=== PATIENT | male | born 1985 | race Caucasian/White ===

== ENCOUNTER 2018-03-17 05:16 | Emergency (ER) | payer OTHER ==
[~2018-03-17] VITALS: Ht 170.2 cm; Wt 65.9 kg
[~2018-03-17 05:16] MED LIST: FAMO-128 PO; NO HOME MEDS; ONDA4TAB12 PO; ONDA4TAB6 PO
[2018-03-17] MEDS ORDERED: normal saline 1000ML IV soln IV ONE (06:00)
[2018-03-17] MEDS ORDERED: CefTRIAXone 2gm/D5W 50ml 50 ML IV ONE (06:00)
[2018-03-17] MEDS ORDERED: dexamethasone sod phosphate 10mg/ml inj IV STA (06:09)
[2018-03-17] MEDS ORDERED: ondansetron/PF 4mg/2ml inj IV ONE (06:15)
[2018-03-17] MEDS ORDERED: morphine 4 MG/ML inj SYRINge IV ONE (06:15)
[2018-03-17] MEDS ORDERED: iohexol 350MG/ML 100ml bottle IV ONE (06:57)
[2018-03-17 07:01] LABS: BASOPHILS % (AUTO) 0 % (0-1); EOSINOPHILS % (AUTO) 0.3 % (0-6); HEMATOCRIT 39.9 % (42.0-52.0); HEMOGLOBIN 13.7 g/dl (14.0-17.9); LYMPHOCYTES % (AUTO) 8.6 % (21-51); MEAN CORPUSCULAR HEMOGLOBIN 30.9 PG (27.0-31.0); MEAN CORPUSCULAR HGB CONC 34.4 % (33.0-36.5); MEAN CORPUSCULAR VOLUME 89.9 FL (78-98); MEAN PLATELET VOLUME 6.7 FL (7.4-10.4); MONOCYTES # (AUTO) 0.6 X10'3 (0-0.9); MONOCYTES % (AUTO) 5.5 % (2-12); NEUTROPHILS # (AUTO) 9.5 X10'3 (1.8-7.7); NEUTROPHILS % (AUTO) 85.6 % (42-75); PARTIAL THROMBOPLASTIN TIME 29 SECONDS (22-32); PLATELET COUNT 294 X10'3 (140-440); PROTHROMBIN TIME 10.3 SECONDS (9.0-12.0); RED BLOOD COUNT 4.44 X10'6 (4.70-6.10); RED CELL DISTRIBUTION WIDTH 13.4 % (11.5-14.5); WHITE BLOOD COUNT 11.1 X10'3 (4.5-11.0)
[2018-03-17 07:06] LABS: ALANINE AMINOTRANSFERASE 88 U/L (12-78); ALBUMIN 2.9 G/DL (3.4-5.0); ALBUMIN/GLOBULIN RATIO 0.8 (1.1-1.5); ALKALINE PHOSPHATASE 88 IU/L (46-116); ANION GAP 8 (8-16); ASPARTATE AMINO TRANSFERASE 37 U/L (10-37); BILIRUBIN,TOTAL 0.6 MG/DL (0.1-1.0); BLOOD UREA NITROGEN 9 MG/DL (7-18); BUN/CREATININE RATIO 10.6 (5.4-32.0); CALCIUM 8.3 MG/DL (8.5-10.1); CHLORIDE 101 MMOL/L (99-107); CREATININE 0.85 MG/DL (0.60-1.10); GLUCOSE 118 MG/DL (70-104); MAGNESIUM 1.4 MG/DL (1.5-2.4); POTASSIUM 4.2 MMOL/L (3.5-5.1); SODIUM 137 MMOL/L (135-145); TOTAL CARBON DIOXIDE 27.8 MMOL/L (24-32); TOTAL PROTEIN 6.7 G/DL (6.4-8.2); eGFR > 90 ML/MIN
[2018-03-17] MEDS ORDERED: vancomycin/NS 1 GM ADD-VANTAGE 250 ML IV ONE (07:10)
[2018-03-17] MEDS ORDERED: diphenhydrAMINE 50 mg/ml inj IV ONE (07:15)
[2018-03-17] MEDS ORDERED: epiNEPHrine 1 mg/ml inj SQ STA (07:30)
[2018-03-17 07:42] VITALS: BP 125/77
== END 2018-03-17 08:00 | disposition short-term general hospital (02) ==
LOC: ER 05:17
DX: J39.1 Other abscess of pharynx (principal); F12.90 Cannabis use, unspecified, uncomplicated; F15.90 Other stimulant use, unspecified, uncomplicated; F17.200 Nicotine dependence, unspecified, uncomplicated; Z79.899 Other long term (current) drug therapy; Z56.0 Unemployment, unspecified
CPT/HCPCS: 36415; 70491; 80053; 83605; 83735; 84145; 85025; 85610; 85730; 87040; 87081; 87880; 96365; 96367; 96372; 96375; 99291; J0171; J0696; J1100; J1200; J2270; J2405; J3370; J7030; Q9967

== ENCOUNTER 2019-02-19 20:06 | Emergency (ER) | payer MEDICAID ==
[~2019-02-19] VITALS: Ht 167.6 cm; Wt 64.3 kg
[~2019-02-19 20:06] MED LIST changes: +LIDOcaine 1% w/EPI 1:100,000 30ml vial (MDV) ONE
[2019-02-19] MEDS ORDERED: HYDR-3965 PO (22:02)
[2019-02-19 22:09] VITALS: BP 140/88
== END 2019-02-19 22:10 | disposition home or self-care (01) ==
LOC: ER 20:07
DX: S62.396A Other fracture of fifth metacarpal bone, right hand, initial encounter for closed fracture (principal); F12.90 Cannabis use, unspecified, uncomplicated; F15.90 Other stimulant use, unspecified, uncomplicated; Z56.0 Unemployment, unspecified; Z79.899 Other long term (current) drug therapy; W22.8XXA Striking against or struck by other objects, initial encounter; Y93.89 Activity, other specified; Y92.89 Other specified places as the place of occurrence of the external cause; Y99.8 Other external cause status
CPT/HCPCS: 26605; 73120; 73130; 99284; J3490

== ENCOUNTER 2019-03-17 13:46 | Outpatient (CLI) | payer MEDICAID ==
[~2019-03-17 13:46] MED LIST changes: -LIDOcaine 1% w/EPI 1:100,000 30ml vial (MDV) ONE
== END 2019-03-17 14:35 | disposition home or self-care (01) ==
LOC: ORTHO 13:46
PROVIDERS: ATTEND Orthopaedic Surgery
DX: S62.336D Displaced fracture of neck of fifth metacarpal bone, right hand, subsequent encounter for fracture with routine healing (principal); X58.XXXD Exposure to other specified factors, subsequent encounter
CPT/HCPCS: 73130; G0463

== ENCOUNTER 2020-02-16 16:58 | Emergency (ER) | payer MEDICAID ==
[~2020-02-16] VITALS: Ht 162.6 cm; Wt 66.4 kg
[2020-02-16 17:02] VITALS: BP 147/76
== END 2020-02-16 18:14 | disposition home or self-care (01) ==
LOC: ER 16:58
DX: M79.641 Pain in right hand (principal); F15.90 Other stimulant use, unspecified, uncomplicated; F12.90 Cannabis use, unspecified, uncomplicated; Z72.89 Other problems related to lifestyle; Z56.0 Unemployment, unspecified; Z79.899 Other long term (current) drug therapy
CPT/HCPCS: 73130; 99283

== ENCOUNTER 2020-05-27 13:52 | Emergency (ER) | payer MEDICAID ==
[~2020-05-27] VITALS: Ht 162.6 cm; Wt 65.9 kg
--- NOTE | 2020-05-27 15:03 | NUR ---
MOTHER CALLED AND SAYS PATIENT DOESNT HEAL WELL, WILL NEED ANTIBIOTICS
[2020-05-27] MEDS ORDERED: BUPIVAcaine/PF 2.5 mg/ml (0.25%) 30ml vial IJ ONE (15:15)
[2020-05-27] MEDS ORDERED: TETanus/Pertussis (Acell)/Diphther VAC/PF (Tdap-Adult) 0.5ml syringe IMVAC ONE (15:15)
[2020-05-27] MEDS ORDERED: BUPIVAcaine/PF 2.5mg/ml (0.25%) 10ml vial IJ ONE (15:20)
[2020-05-27 16:32] VITALS: BP 142/109
== END 2020-05-27 16:30 | disposition home or self-care (01) ==
LOC: ER 13:53
DX: S61.213A Laceration without foreign body of left middle finger without damage to nail, initial encounter (principal); F12.90 Cannabis use, unspecified, uncomplicated; F15.90 Other stimulant use, unspecified, uncomplicated; Z56.0 Unemployment, unspecified; Z79.899 Other long term (current) drug therapy; W45.8XXA Other foreign body or object entering through skin, initial encounter; Y93.H2 Activity, gardening and landscaping; Y92.096 Garden or yard of other non-institutional residence as the place of occurrence of the external cause; Y99.8 Other external cause status
CPT/HCPCS: 12001; 90471; 90715; 99283

== ENCOUNTER 2020-07-22 17:05 | Emergency (ER) | payer MEDICAID ==
[~2020-07-22] VITALS: Ht 165.1 cm; Wt 64.9 kg
[~2020-07-22 17:05] MED LIST changes: +LIDOcaine 1% W/epiNEPHrine 1:200,000 10ml vial ONE
[2020-07-22] MEDS ORDERED: HYDROcodone/acetaminophen 5mg/325mg tablet PO ONE (17:55)
[2020-07-22] MEDS ORDERED: amoxicillin 250mg capsule PO ONE (19:15)
[2020-07-22] MEDS ORDERED: ondansetron 4mg rapidly disintigrating tab PO ONE (19:15)
[2020-07-22] MEDS ORDERED: AMOX500C2 PO (19:30)
[2020-07-22 19:53] VITALS: BP 158/108
== END 2020-07-22 19:55 | disposition home or self-care (01) ==
LOC: ER 17:06
DX: K04.7 Periapical abscess without sinus (principal); R50.9 Fever, unspecified; F12.90 Cannabis use, unspecified, uncomplicated; F15.90 Other stimulant use, unspecified, uncomplicated; Z72.89 Other problems related to lifestyle; Z56.0 Unemployment, unspecified; Z79.2 Long term (current) use of antibiotics; Z79.899 Other long term (current) drug therapy
CPT/HCPCS: 41800; 99284

== ENCOUNTER 2021-04-13 13:39 | Emergency (ER) | payer MEDICAID ==
[~2021-04-13] VITALS: Ht 170.2 cm; Wt 70.9 kg
[~2021-04-13 13:39] MED LIST changes: -LIDOcaine 1% W/epiNEPHrine 1:200,000 10ml vial ONE
[2021-04-13 14:12] VITALS: BP 132/86
[2021-04-13] MEDS ORDERED: NEOM10DR45 LEFT EAR (14:20)
== END 2021-04-13 15:12 | disposition home or self-care (01) ==
LOC: ER 13:40
DX: H60.92 Unspecified otitis externa, left ear (principal); H60.332 Swimmer's ear, left ear
CPT/HCPCS: 99283

== ENCOUNTER 2025-04-13 21:25 | Emergency (ER) | payer MEDICAID ==
[~2025-04-13 21:25] MED LIST changes: +DIAZ-351 PO; -FAMO-128 PO; -ONDA4TAB12 PO
[2025-04-13 21:34] VITALS: BP 164/115; PULSE 100; RESP 18; TEMP 97; O2SAT 97
[2025-04-13] MEDS ORDERED: CLIN-197 PO (21:45)
--- NOTE | 2025-04-13 21:46 | Physician Documentation ---
HPI ~ General Chief Complaint: Facial Swelling Stated Complaint: TOOTH ABSCESS Time Seen by MD: 21:41 Primary Medical Doctor: NONE Source: patient Mode of Arrival: POV Exam Limitations: no limitations History of Present Illness HPI Comment 39-year-old with poor dentition does have dental but it has been awhile has experienced some cheek swelling to the left side for 3 days no fevers no difficulty swallowing or breathing. Patient started taking antibiotics that he has had left over. Medication Reconciliation Allergies: Coded Allergies: No Known Allergies (Unverified , 09/02/09) Scheduled Clindamycin HCl (Clindamycin HCl), 1 CAP PO Q8H Ondansetron Hcl (Zofran), 1 TAB PO Q8H Scheduled PRN Diazepam (Diazepam), 1 TAB PO TID PRN PRN for anxiety Miscellaneous Medications Home Med List (No Home Medications), (Reported) Past Medical History Past Medical History: No Pertinent History Past Surgical History: noncontributory Alcohol Use: Occasionally Drug Use: marijuana, methamphetamine Lives with: S/O Lives In: Home Occupation: unemployed Review of Systems All Other Systems at this time: Reviewed and Negative ENT: Reports: see HPI Physical Exam Vital Signs: Temperature: 97.0, Source: Oral, Heart Rate: 100, Respiratory Rate: 18, BP: 164/115, Pulse Oximetry: 97 Oxygen Flow Rate: 0 Physical Exam General: Alert, no apparent distress. HEENT: PERRL, EOMI, no injection, moist mucous membranes. Poor dentition multiple missing teeth and caries swelling to the left cheek no obvious fluctuance or discharge tender to tap multiple teeth to the left upper jaw. No adenopathy submandibular gland unremarkable for swelling or tenderness Neck: Full range of motion. No adenopathy Respiratory: Lungs clear, no respiratory distress. Chest: No accessory muscle use. Cardiovascular: Regular rate and rhythm, no murmurs. Extremities: Normal range of motion, no deformity. Neurologic: Oriented x4. Psychiatric: Normal mood and affect. Skin: Normal color, warm and dry. No edema, no ecchymosis. Progress Results/Orders Results/Orders Completed Orders - EMELYN COLON NP Clindamycin Capsule (Cleocin Capsule) (04/13/25 22:00) Vital Signs 04/13/25 21:34 Temp 97.0 Pulse 100 Resp 18 B/P (MAP) 164/115 Pulse Ox 97 O2 Flow Rate 0 Medical Decision Making Findings Cheek swelling not past midline differentials include Klaus's angina, dental abscess, parotidosis, had this has been going on for 3 days no difficulty breathing or swallowing or airway compromise. Antibiotics prescribed a dose tonight patient was instructed on the importance of follow up dental appointments Differential Dx:Considerations: Include: ANUG, Facial Cellulitis, Periapical abscess, Peridontal abscess, Other Departure Time of Disposition: 21:44 Disposition: HOME / SELF CARE / HOMELESS Impression: Primary Impression: Dental abscess Additional Impression: Dental caries Condition: Stable Discharge Instructions: Abscess, Dental Additional Instructions: Continue to monitor for any new or worsening symptoms including swelling or difficulty with airway. Take antibiotics as prescribed and follow up with dental [facility] Referrals: NO PRIMARY CARE PROVIDER (PCP) Prescriptions Clindamycin HCl (Clindamycin HCl) 300 Mg Capsule 1 CAP PO Q8H for 10 Days, #30 CAP Prov: EMELYN COLON NP 04/13/25 Education Educated: Patient Educated regarding: diagnosis, treatment, need for follow up Signature Scribe Signature: No scribe Attestation: The note accurately reflects work and decisions made by me.Emelyn PARADA 04/13/25 21:55 EMELYN COLON NP Apr 13, 2025 21:46
== END 2025-04-13 22:12 | disposition home or self-care (01) ==
LOC: ER 21:25
DX: K04.7 Periapical abscess without sinus (principal); K02.9 Dental caries, unspecified; F15.90 Other stimulant use, unspecified, uncomplicated; F12.90 Cannabis use, unspecified, uncomplicated
CPT/HCPCS: 99283

== ENCOUNTER 2025-09-03 10:51 | Emergency (ER) | payer MEDICAID ==
[~2025-09-03] VITALS: Ht 160 cm; Wt 71.4 kg
[2025-09-03 10:55] VITALS: TEMP 97
--- NOTE | 2025-09-03 11:01 | Physician Documentation ---
History of Present Illness ~ Chief Complaint: ETOH Withdrawl Stated Complaint: ETOH WITHDRAWAL Primary Medical Doctor: NONE Source: patient Mode of Arrival: POV Exam Limitations: no limitations HPI 40-year-old male with history of alcohol abuse stopped drinking yesterday but would drink a whole gal of vodka per day. He is having shakes and nausea vomiting Tetanus within 5 years?: Yes Medication Reconciliation Allergies: Coded Allergies: No Known Allergies (Unverified , 09/03/25) Scheduled Ondansetron Hcl (Zofran), 1 TAB PO Q8H Scheduled PRN Diazepam (Diazepam), 1 TAB PO TID PRN PRN for anxiety Miscellaneous Medications Home Med List (No Home Medications), (Reported) Past Medical History Past Medical History: No Pertinent History Past Surgical History: noncontributory Alcohol Use: Occasionally Drug Use: marijuana, methamphetamine Lives with: S/O Lives In: Home Occupation: unemployed Review of Systems All Other Systems at this time: Reviewed and Negative Constitutional: Reports: see HPI Gastrointestinal: Reports: see HPI Physical Exam Vital Signs: RN Vital Signs have been reviewed: Yes, Temperature: 97.0, Source: Temporal, Heart Rate: 96, Respiratory Rate: 18, BP: 162/104, Pulse Oximetry: 98, Weight: 71.400 Oxygen Flow Rate: 0 Physical Exam General: Alert, mild distress HEENT: moist mucous membranes. Neck: Full range of motion. Respiratory: No respiratory distress speaking in full sentences Chest: No accessory muscle use. Cardiovascular: Appears well perfused Neurologic: Oriented x4. Tremulous Psychiatric: Normal mood and affect. Skin: Normal color, warm and dry. No edema, no ecchymosis. Progress Results/Orders Results/Orders Vital Signs 09/03/25 09/03/25 09/03/25 09/03/25 10:55 11:49 12:00 12:57 Temp 97.0 Pulse 96 83 87 Resp 18 15 15 16 B/P (MAP) 162/104 127/85 (99) 128/92 (104) Pulse Ox 98 100 98 O2 Flow Rate 0 09/03/25 09/03/25 13:16 14:35 Pulse 82 71 Resp 15 17 B/P (MAP) 129/92 (104) 136/89 Pulse Ox 98 98 Laboratory Tests Test 09/03/25 11:00 09/03/25 11:12 Urine Opiates Screen Negative Urine Methadone Screen Negative Urine Fentanyl Screen Positive H Urine Barbiturates Screen Negative Urine Phencyclidine Screen Negative Urine Amphetamines Screen Negative Urine Benzodiazepines Screen Negative Urine Cocaine Screen Negative Urine Cannabinoids Screen Positive Drug Screen Comment White Blood Count 6.3 Red Blood Count 4.82 Hemoglobin 15.6 Hematocrit 46.0 Mean Corpuscular Volume 95.4 Mean Corpuscular Hemoglobin 32.4 H Mean Corpuscular Hemoglobin Concent 33.9 Red Cell Distribution Width 14.2 Platelet Count 293 Mean Platelet Volume 7.4 Neutrophils (%) (Auto) 69.7 Lymphocytes (%) (Auto) 23.6 Monocytes (%) (Auto) 5.1 Eosinophils (%) (Auto) 1.1 Basophils (%) (Auto) 0.5 Neutrophils # (Auto) 4.4 Lymphocytes # (Auto) 1.5 Monocytes # (Auto) 0.3 Eosinophils # (Auto) 0.1 Basophils # (Auto) 0.0 CBC Comment Urine Specimen Description Cln catch midstream Urine Color Straw Urine Clarity Clear Urine pH 6.0 Urine Specific [place] 1.010 Urine Protein Negative Urine Glucose (UA) Negative Urine Ketones Negative Urine Occult Blood Negative Urine Nitrite Negative Urine Bilirubin Negative Urine Urobilinogen 1.0 Urine Leukocyte Esterase Negative Urine Culture Indicated Not ind Volume Urine Centrifuged 10 ml Urine Comment Sodium Level 139 Potassium Level 4.4 Chloride Level 103 Carbon Dioxide Level 30.5 Anion Gap 6 L Blood Urea Nitrogen 7 Creatinine 0.69 Estimated GFR/1.73 m2 > 90 BUN/Creatinine Ratio 10.1 Glucose Level 127 H Calcium Level 9.5 Magnesium Level 1.8 Total Bilirubin 1.0 Aspartate Amino Transf (AST/SGOT) 178 H Alanine Aminotransferase (ALT/SGPT) 456 H Alkaline Phosphatase 90 Total Protein 8.0 Albumin 4.2 Globulin 3.8 Albumin/Globulin Ratio 1.1 Lipase 37 Chemistry Comments Ethyl Alcohol Level < 10 Departure Referrals: NO PRIMARY CARE PROVIDER (PCP) Signature Scribe Signature: . DIEUDONNE COLON NP Sep 03, 2025 11:01
[2025-09-03 11:23] LABS: LEUKOCYTE ESTERASE ,URINE NEGATIVE (Neg); MEAN PLATELET VOLUME 7.4 FL (7.4-10.4); NITRITES, URINE NEGATIVE (Neg); OCCULT BLOOD,URINE NEGATIVE (Neg); RED CELL DISTRIBUTION WIDTH 14.2 % (11.5-14.5)
[2025-09-03 11:27] LABS: UA COLLECTION TYPE CLN CATCH MIDSTREAM
[2025-09-03 11:35] LABS: CREATININE 0.69 MG/DL (0.60-1.10); TOTAL CARBON DIOXIDE 30.5 MMOL/L (24-32); eCRCL 117 ML/MIN; eGFR > 90 ML/MIN
[2025-09-03 11:44] LABS: URINE AMPHETAMINE SCREEN NEGATIVE (Neg); URINE BARBITUATE SCREEN NEGATIVE (Neg); URINE BENZODIAZEPINES SCREEN NEGATIVE (Neg); URINE CANNABINOID SCREEN POSITIVE (Neg); URINE COCAINE SCREEN NEGATIVE (Neg); URINE METHADONE SCREEN NEGATIVE (Neg); URINE OPIATE SCREEN NEGATIVE (Neg); URINE PHENCYCLIDINE SCREEN NEGATIVE (Neg)
[2025-09-03 12:07] LABS: ETHANOL < 10 MG/DL (<10)
--- NOTE | 2025-09-03 12:18 | Physician Documentation ---
History of Present Illness ~ Chief Complaint: ETOH Withdrawl Stated Complaint: ETOH WITHDRAWAL Time Seen by MD: 11:44 Primary Medical Doctor: NONE Source: patient Mode of Arrival: POV Exam Limitations: no limitations HPI The patient is a 40-year-old male who comes here for alcohol detox. His last drink was around noon yesterday. He admits to sharing about a gallon of vodka with his girlfriend every day. He has been nauseated but denies vomiting. He has been sweating and having visual disturbances. He wants to stop drinking. 09/03/2025, 12:10 p.m.: CIWA 13 Tetanus within 5 years?: Yes Medication Reconciliation Allergies: Coded Allergies: No Known Allergies (Unverified , 09/03/25) Scheduled Ondansetron Hcl (Zofran), 1 TAB PO Q8H Scheduled PRN Diazepam (Diazepam), 1 TAB PO TID PRN PRN for anxiety Miscellaneous Medications Home Med List (No Home Medications), (Reported) Past Medical History Past Medical History: No Pertinent History Past Surgical History: noncontributory Alcohol Use: Occasionally Drug Use: marijuana, methamphetamine Lives with: S/O Lives In: Home Occupation: unemployed Review of Systems ROS A 10 system review is negative except as noted in the HPI. Physical Exam Vital Signs: Temperature: 97.0, Source: Temporal, Heart Rate: 83, Respiratory Rate: 15, BP: 127/85, Pulse Oximetry: 100, Weight: 71.400 Oxygen Flow Rate: 0 Physical Exam Physical Exam Vitals and nursing note reviewed. Constitutional: General: Patient is awake, alert, CIWA 11 Appearance: Mildly tremulous HENT: Head: Normocephalic and atraumatic. Mouth/Throat: Mouth: Mucous membranes are moist. Pharynx: Oropharynx is clear. Eyes: General: No scleral icterus. Extraocular Movements: Extraocular movements intact. Pupils: Pupils are equal, round, and reactive to light. Neck: Supple, no Kernig or Brudzinski sign. Cardiovascular: Rate and Rhythm: Normal rate and regular rhythm. Heart sounds: No murmur heard. Pulmonary: Effort: No respiratory distress. Breath sounds: No wheezing, rhonchi or rales. Abdominal: General: There is no distension. Palpations: There is no fluid wave, hepatomegaly or mass. Tenderness: There is no abdominal tenderness. There is no guarding. Musculoskeletal: General: No swelling or deformity. Skin: Coloration: Skin is not jaundiced. Findings: No erythema or rash. Neurological: Mental Status: Patient is alert. Progress Progress Note 2:26 p.m.: The patient feels considerably better and would like to be discharged. Results/Orders Results/Orders Completed Orders - CHRIS GARDNER MD Urinalysis, Cult If Indicated (09/03/25 10:58) Cbc/Diff (09/03/25 10:58) BMP (09/03/25 10:58) Lipase (09/03/25 10:58) CMP (09/03/25 10:58) Drug Screen, Urine (09/03/25 10:58) Ethanol (09/03/25 11:12) MG (09/03/25 11:12) Phenobarbital Inj (Phenobarbital Inj.) (09/03/25 13:00) Medications Received in ER Medications (Trade) Dose Ordered Sig/Mickey Route PRN Reason Start Time Stop Time Status Last Admin Dose Admin Phenobarbital Sodium 260 mg/ Sodium Chloride 100 ml @ 200 mls/hr ONCE ONCE IV 09/03/25 13:00 09/03/25 13:29 DC 09/03/25 12:57 200 MLS/HR Vital Signs 09/03/25 09/03/25 09/03/25 09/03/25 10:55 11:49 12:57 13:16 Temp 97.0 Pulse 96 83 87 82 Resp 18 15 16 15 B/P (MAP) 162/104 127/85 (99) 128/92 (104) 129/92 (104) Pulse Ox 98 100 98 98 O2 Flow Rate 0 Laboratory Tests Test 09/03/25 11:00 09/03/25 11:12 Urine Opiates Screen Negative Urine Methadone Screen Negative Urine Fentanyl Screen Positive H Urine Barbiturates Screen Negative Urine Phencyclidine Screen Negative Urine Amphetamines Screen Negative Urine Benzodiazepines Screen Negative Urine Cocaine Screen Negative Urine Cannabinoids Screen Positive Drug Screen Comment White Blood Count 6.3 Red Blood Count 4.82 Hemoglobin 15.6 Hematocrit 46.0 Mean Corpuscular Volume 95.4 Mean Corpuscular Hemoglobin 32.4 H Mean Corpuscular Hemoglobin Concent 33.9 Red Cell Distribution Width 14.2 Platelet Count 293 Mean Platelet Volume 7.4 Neutrophils (%) (Auto) 69.7 Lymphocytes (%) (Auto) 23.6 Monocytes (%) (Auto) 5.1 Eosinophils (%) (Auto) 1.1 Basophils (%) (Auto) 0.5 Neutrophils # (Auto) 4.4 Lymphocytes # (Auto) 1.5 Monocytes # (Auto) 0.3 Eosinophils # (Auto) 0.1 Basophils # (Auto) 0.0 CBC Comment Urine Specimen Description Cln catch midstream Urine Color Straw Urine Clarity Clear Urine pH 6.0 Urine Specific [place] 1.010 Urine Protein Negative Urine Glucose (UA) Negative Urine Ketones Negative Urine Occult Blood Negative Urine Nitrite Negative Urine Bilirubin Negative Urine Urobilinogen 1.0 Urine Leukocyte Esterase Negative Urine Culture Indicated Not ind Volume Urine Centrifuged 10 ml Urine Comment Sodium Level 139 Potassium Level 4.4 Chloride Level 103 Carbon Dioxide Level 30.5 Anion Gap 6 L Blood Urea Nitrogen 7 Creatinine 0.69 Estimated GFR/1.73 m2 > 90 BUN/Creatinine Ratio 10.1 Glucose Level 127 H Calcium Level 9.5 Magnesium Level 1.8 Total Bilirubin 1.0 Aspartate Amino Transf (AST/SGOT) 178 H Alanine Aminotransferase (ALT/SGPT) 456 H Alkaline Phosphatase 90 Total Protein 8.0 Albumin 4.2 Globulin 3.8 Albumin/Globulin Ratio 1.1 Lipase 37 Chemistry Comments Ethyl Alcohol Level < 10 Medical Decision Making Additional information obtaine: family Findings 40-year-old male presents with mild to moderate alcohol withdrawal symptoms. I have treated him with phenobarbital. Differential Dx:Considerations: Include: Intoxication-Alcohol, Substance abuse disorder, Alcohol withdrawl syndrom; Unlikely: Intoxication-Other drug, Personality disorder, Acute delirium, Closed head injury, Cervical spine injury, Skull fracture, Fracture(s), Abrasion, Contusion, Foreign body, Hematoma, Laceration, Encephalopathy, Hepatitis, Medically stable, Other Departure Disposition: 01 HOME / SELF CARE / HOMELESS Impression: Primary Impression: Alcohol dependence Additional Instructions: I would recommend you seek a in alcohol rehabilitation program. You can always return here for worsening symptoms or new/unusual symptoms, in the meantime. Referrals: NO PRIMARY CARE PROVIDER (PCP) Signature Scribe Signature: . Attestation: CHRIS HARDWICK MD Sep 03, 2025 12:17
[2025-09-03 14:35] VITALS: BP 136/89; PULSE 71; RESP 17; O2SAT 98
== END 2025-09-03 14:39 | disposition home or self-care (01) ==
LOC: ER 10:51
DX: F10.239 Alcohol dependence with withdrawal, unspecified (principal); F12.90 Cannabis use, unspecified, uncomplicated; F15.90 Other stimulant use, unspecified, uncomplicated; Z79.899 Other long term (current) drug therapy; Z56.0 Unemployment, unspecified; Z72.89 Other problems related to lifestyle; Y90.0 Blood alcohol level of less than 20 mg/100 ml
CPT/HCPCS: 36415; 80053; 80305; 80320; 81003; 83690; 83735; 85025; 96365; 99285; J2560